=== PATIENT | female | born 1965 | race Caucasian/White ===

== ENCOUNTER 2018-04-14 11:18 | Emergency (ER) | payer MEDICAID ==
[~2018-04-14] VITALS: Ht 162.6 cm; Wt 59.0 kg
[~2018-04-14 11:18] MED LIST: LAM25 PO; PARO40TA PO; SULF1TAB48 PO; TRAZ-213 PO; ZIPR80CA2 PO
[2018-04-14 11:56] VITALS: BP 123/88
[2018-04-14] MEDS ORDERED: LIDOCAINE HCL 1% 20ML VIAL (Pyxis) INJ INFIL ONE (15:15)
[2018-04-14] MEDS ORDERED: CEFTRIAXONE SODIUM 500 MG/VIAL IM ONE (15:15)
== END 2018-04-14 15:37 | disposition home or self-care (01) ==
LOC: ER 12:59
DX: M54.5 Low back pain (principal); F17.200 Nicotine dependence, unspecified, uncomplicated; F11.10 Opioid abuse, uncomplicated; Z88.1 Allergy status to other antibiotic agents; Z98.51 Tubal ligation status; Z79.899 Other long term (current) drug therapy
CPT/HCPCS: 96372; 99283; J0696; J3490